=== PATIENT | female | born 1975 | race American Indian/Alaskan Native ===

== ENCOUNTER 2020-08-23 11:22 | Emergency (ER) | payer OTHER ==
[~2020-08-23] VITALS: Ht 162.6 cm; Wt 80.6 kg
[2020-08-23] MEDS ORDERED: CYMB1CAP4 PO (11:41)
[2020-08-23] MEDS ORDERED: MELO15TA28 PO (11:41)
[2020-08-23] MEDS ORDERED: NS 1,000 ML IV ONE (12:05)
[2020-08-23] MEDS ORDERED: ONDANSETRON 4MG/2ML VIAL IV ONE (12:05)
[2020-08-23 12:45] LABS: BASO % 0.7 % (0.0-1.0); EOS # 0.1 10^3/uL (0.0-0.5); EOS % 1.8 % (0.0-3.0); HEMATOCRIT 42.2 % (36.0-47.0); HEMOGLOBIN 13.3 g/dl (12.0-15.5); LYMPH # 1.5 10^3/uL (1.5-5.0); MEAN CORPUSCULAR HEMOGLOBIN 25.9 pg (27.0-33.0); MEAN CORPUSCULAR HGB CONC 31.5 g/dl (32.0-36.5); MEAN CORPUSCULAR VOLUME 82.1 fl (80.0-96.0); MONO # 0.6 10^3/uL (0.0-0.8); MONO % 10.3 % (2.0-8.0); NEUTROPHILS # 3.4 10^3/uL (1.5-8.5); NEUTROPHILS % 60.8 % (36.0-66.0); PLATELET COUNT, AUTOMATED 190 10^3/uL (150-450); RED BLOOD COUNT 5.14 10^6/uL (4.00-5.40); WHITE BLOOD COUNT 5.6 10^3/uL (4.0-10.0)
[2020-08-23 13:02] LABS: HCG, SERUM QUALITATIVE NEGATIVE (NEGATIVE)
[2020-08-23 13:05] LABS: ALBUMIN 3.7 GM/DL (3.2-5.2); ALT/SGPT 20 U/L (12-78); BILIRUBIN,DIRECT 0.2 MG/DL (0.0-0.2); BILIRUBIN,TOTAL 0.6 MG/DL (0.2-1.0); BLOOD UREA NITROGEN 10 MG/DL (7-18); CALCIUM LEVEL 8.8 MG/DL (8.5-10.1); CARBON DIOXIDE LEVEL 29 MEQ/L (21-32); CHLORIDE LEVEL 106 MEQ/L (98-107); CREATININE FOR GFR 0.63 MG/DL (0.55-1.30); GLOMERULAR FILTRATION RATE > 60.0 (>58); GLUCOSE, FASTING 87 MG/DL (70-100); LIPASE 88 U/L (73-393); POTASSIUM SERUM 4.2 MEQ/L (3.5-5.1); SODIUM LEVEL 138 MEQ/L (136-145); TOTAL PROTEIN 7.1 GM/DL (6.4-8.2)
[2020-08-23 13:32] LABS: ERYTHROCYTE SEDIMENTATION RATE 6 mm/hr (0-20)
[2020-08-23 13:50] LABS: RSV AMPLIFICATION NEGATIVE (NEGATIVE)
--- NOTE | 2020-08-23 14:31 | REP ---
INDICATION: short of breath COMPARISON: None. TECHNIQUE: PA/Lateral FINDINGS: Lungs: Clear, no infiltrate. Heart: Normal in size. Mediastinum: Mediastinal silhouette unremarkable. Pleural angles: Unremarkable.. Bones and soft tissues: Unremarkable. IMPRESSION: No acute pulmonary disease. <Electronically signed by Forest Whiting > 08/23/20 [id number]
[2020-08-23 14:35] VITALS: BP 123/73
== END 2020-08-23 15:22 | disposition home or self-care (01) ==
LOC: M ED 11:22
DX: R61 Generalized hyperhidrosis (principal); R50.81 Fever presenting with conditions classified elsewhere; R10.9 Unspecified abdominal pain; I95.9 Hypotension, unspecified; K80.20 Calculus of gallbladder without cholecystitis without obstruction; K80.43 Calculus of bile duct with acute cholecystitis with obstruction
CPT/HCPCS: 71046; 80048; 80076; 81001; 83690; 84703; 85025; 85652; 86140; 87631; 96361; 96374; 99284; J2405

== ENCOUNTER 2021-02-06 15:33 | Emergency (ER) | payer OTHER ==
[~2021-02-06] VITALS: Ht 162.6 cm; Wt 72.7 kg
[2021-02-06 15:33] VITALS: BP 140/86
== END 2021-02-06 17:02 | disposition left against medical advice (07) ==
LOC: M ED 15:33
DX: Z53.21 Procedure and treatment not carried out due to patient leaving prior to being seen by health care provider (principal)

== ENCOUNTER → 2021-02-06 | Outpatient (REF) | payer OTHER ==
[~2021-02-06] MED LIST: CYMB1CAP4 PO; MELO15TA28 PO
[2021-02-06 17:14] LABS: APPEARANCE, URINE CLEAR (CLEAR); BACTERIA, URINE AUTO NEGATIVE (NEGATIVE); BILIRUBIN, URINE AUTO NEGATIVE (NEGATIVE); BLOOD, URINE BLOOD NEGATIVE (NEGATIVE); COLOR, URINE YELLOW (YELLOW); GLUCOSE, URINE (UA) AUTO NEGATIVE (NEGATIVE); KETONE, URINE AUTO NEGATIVE (NEGATIVE); LEUKOCYTE ESTERASE, URINE AUTO NEGATIVE (NEGATIVE); MUCUS, URINE SMALL (NEGATIVE); NITRITE, URINE AUTO NEGATIVE (NEGATIVE); PROTEIN, URINE AUTO NEGATIVE (NEGATIVE); RBC, URINE AUTO 1 /HPF (0-3); SPECIFIC GRAVITY URINE AUTO 1.015 (1.002-1.035); SQUAMOUS EPITHELIAL CELL UR AU 0 /HPF (0-6); WBC, URINE AUTO 1 /HPF (0-3)
== END ==
LOC: M LAB REF 16:39
PROVIDERS: ATTEND Physician Assistant Medical
DX: R10.9 Unspecified abdominal pain (principal)

== ENCOUNTER → 2021-02-12 | Outpatient (REF) ==
--- NOTE | 2021-02-13 04:04 | REP ---
INDICATION: DDD,SOB. COMPARISON: None. TECHNIQUE: AP, lateral, swimmer's and open-mouth views of the cervical spine FINDINGS: Straightening of normal lordosis is nonspecific. Vertebral bodies including posterior elements and spinous processes are intact and normal without acute fracture/compression injury or subluxation. Disc spaces appear relatively equal and within normal limits for age. Surrounding soft tissues are normal. IMPRESSION: Relatively age-appropriate cervical spine radiograph series. If the patient remains symptomatic consider MRI for further investigation. <Electronically signed by Erick Laird > 02/13/21 1604
--- NOTE | 2021-02-13 04:06 | REP ---
INDICATION: DDD,SOB COMPARISON: 08/23/2020 TECHNIQUE: PA and lateral. FINDINGS: The mediastinum and cardiac silhouette are normal. The lung smith are clear and without acute consolidation, effusion, or pneumothorax. The skeletal structures are intact and normal. IMPRESSION: No acute cardiopulmonary process. If the patient remains symptomatic consider chest CT for further investigation. <Electronically signed by Erick Laird > 02/13/21 [id number]
--- NOTE | 2021-02-13 04:06 | REP ---
INDICATION: DDD,SOB COMPARISON: None. TECHNIQUE: AP and lateral views of the left elbow. FINDINGS: No acute fracture or dislocation is appreciated. Joint spaces and surrounding soft tissues appear normal. Lateral view demonstrates normal positioning to the anterior and posterior fat pads without evidence for effusion/hemarthrosis. No subcutaneous emphysema or foreign body identified. IMPRESSION: Normal elbow radiographs. <Electronically signed by Erick Laird > 02/13/21 1435
--- NOTE | 2021-02-13 04:08 | REP ---
INDICATION: DDD,SOB COMPARISON: None. TECHNIQUE: AP, lateral, sunrise views of the right and left knee. FINDINGS: Bilateral knees are relatively symmetric and essentially age-appropriate. Joint spaces are normal. No evidence for osteophytosis or significant degenerative changes. No chondrocalcinosis. No evidence for acute fracture. No effusion. IMPRESSION: Symmetric age-appropriate bilateral knee radiograph series. <Electronically signed by Erick Laird > 02/13/21 0403
--- NOTE | 2021-02-13 04:09 | REP ---
INDICATION: DDD,SOB COMPARISON: None. TECHNIQUE: AP, lateral, bilateral oblique views right and left wrist. FINDINGS: The carpal bones, surrounding osseous structures, soft tissues, and joint spaces are essentially symmetric and age-appropriate bilaterally. There is no evidence for acute fracture or dislocation. No overt osteoarthritic degenerative changes are appreciated. No subcutaneous emphysema or radiodense foreign body. IMPRESSION: Symmetric age-appropriate bilateral wrist radiograph series. <Electronically signed by Erick Laird > 02/13/21 [id number]
--- NOTE | 2021-02-13 04:11 | REP ---
INDICATION: DDD,SOB. COMPARISON: None. TECHNIQUE: AP, lateral, water's, and SMV views of the sinuses. FINDINGS: Sinuses are well aerated and without fluid level. No obvious mucosal thickening. Osseous structures are intact and normal. No foreign body. Surrounding soft tissues are unremarkable. IMPRESSION: Normal sinus radiograph series. If the patient remains symptomatic consider maxillofacial CT for further investigation. <Electronically signed by Erick Laird > 02/13/21 040
--- NOTE | 2021-02-13 04:12 | REP ---
INDICATION: DDD,SOB COMPARISON: None. TECHNIQUE: AP, lateral, coned-down views of the lumbar spine. FINDINGS: Three views of the lumbosacral spine demonstrate satisfactory alignment and lordosis without acute fracture / compression injury or subluxation. Moderate degenerative changes at L5-S1 includes endplate sclerosis, disc space narrowing, early osteophytosis and facet hypertrophy. Remainder of the intervertebral disc levels appear symmetric and normal. IMPRESSION: 1. No acute fracture / compression injury or subluxation. 2. Focal moderate degenerative changes at L5-S1. <Electronically signed by Erick Laird > 02/13/21 0405
--- NOTE | 2021-02-13 04:22 | REP ---
INDICATION: DDD,SOB COMPARISON: None. TECHNIQUE: AP, lateral, bilateral oblique views right and left ankle. FINDINGS: Osseous structures, joint spaces, and surrounding soft tissues are bilaterally symmetric and normal. No acute fracture or dislocation. Ankle mortise intact. Surrounding soft tissues are unremarkable. IMPRESSION: Normal bilateral ankle radiograph series. <Electronically signed by Erick Laird > 02/13/21 0413
--- NOTE | 2021-02-13 04:39 | REP ---
INDICATION: DDD,SOB COMPARISON: None. TECHNIQUE: bilateral lateral views of the nasal bones. FINDINGS: Nasal bones appear intact without acute fracture or dislocation. Overlying soft tissues are grossly unremarkable. IMPRESSION: No acute nasal bone fracture identified. <Electronically signed by Erick Laird > 02/13/21 0432
== END ==
LOC: M PLAIMG 14:38
PROVIDERS: ATTEND Internal Medicine
DX: Z02.71 Encounter for disability determination (principal)